=== PATIENT | female | born 1955 | race Caucasian/White ===

== ENCOUNTER 2016-06-24 06:20 | Emergency (ER) | payer BC ==
[~2016-06-24 06:20] MED LIST: AMB10 PO; AMB5 PO; ASAB PO; AUG500 PO; AVINZA90 PO; CALTRA600D PO; CITRACAL PO; CYMBALTA60 PO; DSS PO; EFFEXOR XR150 MG PO; EFFEXXR75 PO; GARLIC; GLUCCHONDR PO; KAPIDEX60 MG PO; LOP25 PO; MAGNESIUM PO; MIRALAXPKT PO; MOBIC15 MG PO; MORPHINE ER PO; PROTONIX PO; ROXICODONE15 MG PO; ROXICODONE30 MG PO; ROZEREM; ROZEREM8 MG PO; TAMBO50 PO; V5 PO; VOLTAREN1 % TOP; ZANAFLEX 4 MG TA4 MG PO; [UNRECOGNIZED DRUG - OTHER] NAS; [UNRECOGNIZED DRUG - OTHER] PO
[2016-07-31] MEDS ORDERED: LYRICA75 PO ×2 (09:00→09:46)
== END 2016-06-24 06:54 | disposition home or self-care (01) ==
LOC: ER 06:20
DX: S50.02XA Contusion of left elbow, initial encounter (principal); S20.212A Contusion of left front wall of thorax, initial encounter; I48.91 Unspecified atrial fibrillation; Z88.2 Allergy status to sulfonamides; Z88.5 Allergy status to narcotic agent; Z79.899 Other long term (current) drug therapy; W19.XXXA Unspecified fall, initial encounter
CPT/HCPCS: 71101; 73030-LT; 73080-LT; 96372; 99284; J1170

== ENCOUNTER 2016-08-01 07:13 | Inpatient (IN) | payer BC ==
[2016-07-30 12:25] LABS: BASOPHILS 1.8 %; BASOPHILS ABSOLUTE 0.13 10/3/uL (0.0-0.16); EOSINOPHILS 6.6 %; EOSINOPHILS ABSOLUTE 0.47 10/3/uL (0.0-0.53); HEMATOCRIT 39.4 % (36.0-48.0); HEMOGLOBIN 12.9 g/dL (12.0-16.0); LYMPHOCYTES ABSOLUTE 1.35 10/3/uL (0.67-4.30); MEAN PLATELET VOLUME 9.2 fL (9.2-13.0); MONOCYTES 7.3 %; MONOCYTES ABSOLUTE 0.52 10/3/uL (0.21-1.20); NEUTROPHILS 65.3 %; NEUTROPHILS ABSOLUTE 4.62 10/3/uL (2.02-8.40); PLATELET COUNT 366 10/3/uL (150-400); RBC DISTRIBUTION WIDTH 13.4 % (12.0-16.0); WHITE BLOOD CELLS 7.1 10/3/uL (4.5-10.5)
[2016-07-30 12:26] LABS: MANUAL DIFF NO %; MEAN CORPUS HGB CONC 32.7 g/dL (32.0-36.0); MEAN CORPUSCULAR HEMOGLOB 30.4 pg (26.0-34.0); MEAN CORPUSCULAR VOLUME 92.9 fL (80-100); RED CELL COUNT 4.24 10/6/uL (4.0-5.6)
[2016-07-30 12:34] LABS: PARTIAL THROMBO TIME 35.4 SEC (22.5-37.2); PROTIME (NOT ORD) 12.8 SEC (12.0-14.5)
[2016-07-30 12:41] LABS: ALBUMIN 3.8 G/DL (3.5-5.0); BUN (BLOOD UREA NITROGEN) 12 MG/DL (6-23); CALCIUM, SERUM 8.2 MG/DL (8.5-10.4); CHLORIDE, SERUM 106 MMOL/L (96-112); CO2 (CARBON DIOXIDE) 31 MMOL/L (24-34); CREATININE 0.66 MG/DL (0.55-1.02); GFR AFRICAN AMERICAN 110 ML/MIN (>=60); GFR NON AFRICAN AMERICAN 95 ML/MIN (>=60); GLOBULIN 3.7 G/DL (2.5-4.1); POTASSIUM, SERUM 4.1 MMOL/L (3.5-5.3); SGOT(AST) 31 U/L (5-40); SGPT(ALT) 33 U/L (5-65); SODIUM, SERUM 140 MMOL/L (135-148); TOTAL BILIRUBIN 0.4 MG/DL (0-1.2); TOTAL PROTEIN 7.5 G/DL (6.0-8.5)
[2016-07-30 12:43] LABS: ALKALINE PHOSPHATASE 86 U/L (45-117); GLUCOSE, SERUM 86 MG/DL (60-99)
[2016-07-30 13:26] LABS: ASCORBIC ACID (UR NOT ORDER) NEG (NEG); BILIRUBIN, URINE NEGATIVE (NEG); KETONE, URINE NEGATIVE (NEG); LEUKOCYTE ESTERASE(NOT OR TRACE (NEG); WBC (NOT ORDERED) (RFLEX) 2 (0-5)
--- NOTE | ~2016-08-01 | OP ---
Record Of Operation [facility] [address] [place]. [address] NAME: CHERELLE QUILES : 53 STATUS : ADM IN PAT#: [id number] AGE: 61 ADM/REG DATE : 08/01/16 MR#: [id number] REPORT SERV DATE: 08/01/16 DICTATED BY: SHELLI ORTIZ DATE: 08/01/16 REPORT STATUS : Draft TRANSCRIBED BY: MODL DATE: 08/01/16 DATE OF PROCEDURE: 08/01/2016 PREOPERATIVE DIAGNOSIS: Left knee arthritis with valgus. POSTOPERATIVE DIAGNOSIS: Left knee arthritis with valgus. PROCEDURE PERFORMED: Left total knee arthroplasty. SURGEON: Shelli Ortiz M.D. VEHICLE BODY BUILDER: Aranza Goncalves. ANESTHESIA: General with adductor block local infusion. PROCEDURE IN DETAIL: The patient is clearly identified and after obtaining informed consent is brought to the operating room at [facility] where anesthesia is induced uneventfully with excellent anesthetic effect. Subsequently, the affected extremity is prepped and draped in the usual manner and after an appropriate time-out procedure is performed, via an anterior approach, the skin is divided, fascial planes are elevated, paramedial approach to the knee is made. The structures themselves are elevated, excised, and debrided were appropriate, whereupon the patella is carefully everted, calipered, and planed and with the size and type being reproduced with the appropriate-size patella, trialing is performed successfully. At this point, the patella is then carefully subluxed laterally, the knee is flexed, osteophytes around the distal femur are removed, followed by the ACL being divided. The femoral canal is entered and vented, at which point with the intramedullary guide being utilized, the distal femoral cut is made. At this point, the tibia is carefully subluxed anteriorly. The surrounding soft tissues to the tibia are protected with Hohmann retractors, at which point the extramedullary guide is utilized to perform the proximal tibial cut and after cleansing these tissues, the spacer block is utilized in extension to confirm excellent extension, stability, and alignment. The guiding pins are then all carefully removed and the knee is then flexed. The femur is sized, whereupon the anterior, posterior, chamfer, and box cuts are made appropriately. The proximal tibia then is assessed. Osteophytes and surrounding soft tissues are removed and debrided were appropriate. Posterior osteophytes are removed as well. The menisci are excised and thus concluding trialings performed successfully. The proximal tibia then is carefully prepared utilizing proper cement technique. The permanent implants have been carefully placed into position uneventfully where upon copious irrigations performed, the permanent tibial implants applied and thus concluded. The joint was then copiously irrigated, at which point it is closed carefully in layers including Vicryl and hetal for the skin, at which point Aquacel sterile dressing is applied. The patient is allowed to awaken and is transferred to the bed and subsequently to the recovery room in stable condition having tolerated the procedure well. ESTIMATED BLOOD LOSS: 150 mL. Record Of Operation [address] [place]. [address] NAME: CHERELLE QUILES : 53 STATUS : ADM IN [facility]#: [id number] AGE: 61 ADM/REG DATE : 08/01/16 MR#: [id number] REPORT SERV DATE: 08/01/16 DICTATED BY: SHELLI ORTIZ DATE: 08/01/16 REPORT STATUS : Draft TRANSCRIBED BY: JOE DATE: 08/01/16 FLUIDS: 1000 mL. TOURNIQUET TIME: 37 minutes. PATHOLOGY: Sent specimen. MICROBIOLOGY: None. COMPLICATIONS: None. SPONGE AND NEEDLE COUNTS: Reportedly correct. ANTIBIOTICS: Administered appropriately preoperatively and ordered to be discontinued within 23 hours. IMPLANTS: Attune knee by DePuy, femur 6 narrow, tibia 4, patella 38, polyethylene 6/7. KYLAH/JOE Shelli Ortiz M.D. / [id number] CC: Shelli Ortiz M.D.
[~2016-08-01 07:13] MED LIST changes: +LYRICA75 PO
[2016-08-02 05:41] LABS: HEMOGLOBIN 8.1 g/dL (12.0-16.0)
[2016-08-02 05:45] LABS: INTERNATIONAL NORMAL RATI 1.2 UNITS (-)
[2016-08-02 05:47] LABS: BUN (BLOOD UREA NITROGEN) 13 MG/DL (6-23); CHLORIDE, SERUM 104 MMOL/L (96-112); CO2 (CARBON DIOXIDE) 31 MMOL/L (24-34); GFR AFRICAN AMERICAN 113 ML/MIN (>=60); GFR NON AFRICAN AMERICAN 98 ML/MIN (>=60); POTASSIUM, SERUM 4.2 MMOL/L (3.5-5.3); SODIUM, SERUM 138 MMOL/L (135-148)
[2016-08-02 05:53] LABS: CALCIUM, SERUM 7.2 MG/DL (8.5-10.4); GLUCOSE, SERUM 108 MG/DL (60-99)
[2016-08-02] MEDS ORDERED: C5 PO (13:52)
[2016-08-02] MEDS ORDERED: OXYCOD PO (13:54)
[2016-08-03 04:46] LABS: HEMATOCRIT 23.8 % (36.0-48.0); HEMOGLOBIN 7.7 g/dL (12.0-16.0)
[2016-08-03 04:54] LABS: INTERNATIONAL NORMAL RATI 1.8 UNITS (-)
[2016-08-03 04:55] LABS: PROTIME (NOT ORD) 20.3 SEC (12.0-14.5)
[2016-08-03] MEDS ORDERED: DIL2TAB PO (10:17)
== END 2016-08-03 10:56 | disposition home or self-care (01) | DRG 470 ==
LOC: SDC/OF 07:13 → PACU 12:44 → 3JRC 16:06
PROVIDERS: Orthopaedic Surgery
PROC: 3E0T3CZ (ICD-10-PCS; 2016-08-01)
PROC: 0SRD0JZ Replacement of Left Knee Joint with Synthetic Substitute, Open Approach (ICD-10-PCS; principal; 2016-08-01 09:30)
DX: M17.12 Unilateral primary osteoarthritis, left knee (principal); D62 Acute posthemorrhagic anemia; I10 Essential (primary) hypertension; K21.9 Gastro-esophageal reflux disease without esophagitis; M79.7 Fibromyalgia; I48.91 Unspecified atrial fibrillation; Z96.642 Presence of left artificial hip joint; Z79.82 Long term (current) use of aspirin; Z98.1 Arthrodesis status; Z88.2 Allergy status to sulfonamides; Z88.5 Allergy status to narcotic agent; Z79.01 Long term (current) use of anticoagulants
CPT/HCPCS: 36415; 71020; 80048; 80053; 81001; 85014; 85018; 85025; 85610; 85730; 86850; 86900; 86901; 87641; 88305; 88311; 97110-GP; 97116-GP; 97150-GP; 97161-GP; 97165-GO; A9270-GY; C1776; J0690; J1170; J1885; J2250; J2405; J2550; J2710; J2795; J3010